=== PATIENT | male | born 1985 | race Caucasian/White ===

== ENCOUNTER 2017-01-28 12:27 | Emergency (ER) | payer OTHER ==
--- NOTE | 2017-01-28 13:11 | ED Physician Documentation ---
PD HPI UPPER EXT INJURY - Stated complaint Stated Complaint: L RING FINGER INJURY - Chief complaint Chief Complaint: Ext Problem - History obtained from History obtained from: Patient, Family - History of Present Illness Location: Left, Finger (ring) Type of injury: Other (pulled on dog collar) Where injury occurred: Home Timing - onset: Last night Timing - duration: Days (1) Timing - details: Abrupt onset Pain level max: 7 Pain level now: 6 Improved by: Rest, Ice, Immobilization Worsened by: Moving, Palpating Associated symptoms: Swelling, Discolored (ecchymosis). No: Weakness, Numbness , Tingling Contributing factors: No: Anticoagulated Similar symptoms before: Has not had sx before - Additonal information Additional information: pt is right handed Review of Systems Constitutional: denies: Fever, Chills Respiratory: denies: Cough GI: denies: Abdominal Pain, Nausea, Vomiting, Diarrhea Skin: denies: Rash, Laceration (s) Musculoskeletal: denies: Neck pain, Back pain Neurologic: denies: Headache PD PAST MEDICAL HISTORY - Past Medical History Past Medical History: No - Allergies Allergies/Adverse Reactions: Allergies Allergy/AdvReac Type Severity Reaction Status Date / Time No Known Drug Allergies Allergy Verified 01/28/17 12:43 PD ED PE NORMAL - Vitals Vital signs reviewed: Yes - General General: Alert and oriented X 3, No acute distress - Derm Derm: Warm and dry - Neuro Neuro: Alert and oriented X 3 - Psych Psych: Normal mood, Normal affect PD ED PE EXPANDED - Extremities IVONNE UE/Hands Visual: 1 - swelling, tenderness (no deformity. Limited ROM 2/2 pain. NVI) Results - Vitals Vitals: Vital Signs - 24 hr 01/28/17 01/28/17 12:40 13:48 Temperature 36.2 C L 36.5 C Heart Rate 56 L 58 L Respiratory 14 16 Rate Blood Pressure 118/68 120/64 O2 Saturation 99 100 Oxygen O2 Source Room air - Rads (name of study) L 4th digit xray Radiology: Prelim report reviewed, EMP read contemporaneously, See rad report ( Large avulsion fracture base of the fourth distal phalanx) PD MEDICAL DECISION MAKING - ED course Complexity details: reviewed results, re-evaluated patient, considered differential, d/w patient, d/w family ED course: Patient is a 31-year-old male who appears to have a large avulsion fracture at the base of the distal phalanx of the fourth digit. Placed in a mallet finger splint. Unable to test tendon and ligament involvement as he is swollen and in pain. Recommend that he follow-up closely with his doctor for further evaluation and inform the patient that he may need referral to a hand specialist or orthopedist. Patient counseled regarding signs and symptoms for which I believe and urgent re-evaluation would be necessary. Patient with good understanding of and agreement to plan and is comfortable going home at this time This document was made in part using voice recognition software. While efforts are made to proofread this document, sound alike and grammatical errors may occur. Departure - Departure Disposition: 01 Home, Self Care Clinical Impression: Finger fracture, left, Mallet finger of left finger(s) Condition: Good Instructions: ED Fx Finger Closed Follow-Up: your,doctor in 1 week [Other] Comments: Return if you worsen. Wear the splint until seen by your doctor next week. You need repeat evaluation to evaluate for ligament/tendon injury. Discharge Date/Time: 01/28/17 13:58
--- NOTE | 2017-01-28 13:41 | XRAY Preliminary Report ---
Exam: XR Finger(s) LT IMPRESSION: Large avulsion fracture base fourth distal phalanx. [facility] SITE ID: [id number]
[2017-01-28 13:48] VITALS: BP 120/64
--- NOTE | 2017-01-28 14:20 | XRAY Report ---
EXAM: LEFT FOURTH DIGIT RADIOGRAPHY EXAM DATE: 01/28/2017 01:26 PM. CLINICAL HISTORY: Fourth digit swelling, ecchymosis. COMPARISON: None. TECHNIQUE: 3 views. FINDINGS: Bones: Large acute comminuted avulsion fracture involving the posterior two-thirds space fourth dista l phalanx with 1 mm offset of the major fracture fragments. Joints: Normal. No subluxations. Soft Tissues: Marked edema adjacent to the fracture. IMPRESSION: Large avulsion fracture base fourth distal phalanx. [facility] Referring Provider Line: [phone] SITE ID: [id number]
== END 2017-01-28 13:58 | disposition home or self-care (01) ==
LOC: ED 12:27
DX: S62.635A Displaced fracture of distal phalanx of left ring finger, initial encounter for closed fracture (principal); M20.011 Mallet finger of right finger(s); W23.0XXA Caught, crushed, jammed, or pinched between moving objects, initial encounter; X50.1XXA Overexertion from prolonged static or awkward postures, initial encounter; Y92.009 Unspecified place in unspecified non-institutional (private) residence as the place of occurrence of the external cause
CPT/HCPCS: 73140; 99283

== ENCOUNTER 2018-05-03 07:14 | Outpatient (CLI) | payer OTHER ==
[2018-05-03] MEDS ORDERED: GADOBUTROL 10 MMOL/10 ML VIAL ONE (07:32)
[2018-05-03] MEDS ORDERED: GADOBUTROL 10 MMOL/10 ML VIAL IVP ONE (08:29)
--- NOTE | 2018-05-03 14:25 | MRI Report ---
Reason: MIGRAINE,UNSPECIFIED,NOT INTACTABLE, WITHOUT STAT Procedure Date: 05/03/2018 Accession Number: [id number] / [id number] Procedure: MRI - Brain W/WO CPT Code: FULL RESULT: EXAM: MRI BRAIN WITHOUT AND WITH CONTRAST EXAM DATE: 05/03/2018 08:27 AM. CLINICAL HISTORY: Reported history of migraines with increasing frequency over the last 6 years. COMPARISON: BRAIN/IAC'S 08/06/2008 11:31 AM. TECHNIQUE: Multiplanar, multisequence T1-weighted and fluid-sensitive MR sequences of the brain were performed. Sequences optimized for routine evaluation. Other: None. IV Contrast: 10 mL Gadavist. FINDINGS: Brain Volume: Normal for age. Parenchyma: No acute hemorrhage, mass, or infarct. No white matter lesions identified. No abnormal enhancement. Ventricles/Cisterns: No hydrocephalus. No abnormal extra-axial fluid collection or hemorrhage. Orbits: Symmetric and unremarkable. Sella Turcica: The pituitary gland, cavernous sinuses, suprasellar cistern and optic chiasm are unremarkable. IAC: Symmetric and unremarkable. Vasculature: Normal signal flow void is seen in the major arterial structures at the skull base. The dural sinuses are patent and enhance normally. Sinuses: Minimal nonspecific inferior maxillary mucosal thickening. Bones: No focal pathologic appearing marrow signal changes. Other: None. IMPRESSION: 1. No acute intracranial abnormality or enhancing mass. Stable appearance of the brain. 2. Minimal nonspecific maxillary sinus mucosal thickening. [facility]
== END 2018-05-03 07:15 | disposition home or self-care (01) ==
LOC: DI 07:14
PROVIDERS: ATTEND General Practice
DX: G43.909 Migraine, unspecified, not intractable, without status migrainosus (principal)
CPT/HCPCS: 70553; A9585

== ENCOUNTER 2018-08-11 12:15 | Outpatient (CLI) | payer OTHER ==
--- NOTE | 2018-08-11 15:39 | MRI Report ---
Reason: PAIN IN RIGHT KNEE Procedure Date: 08/11/2018 Accession Number: [id number] / [id number] Procedure: MRI - Knee RT W/O CPT Code: FULL RESULT: EXAM: RIGHT KNEE MRI WITHOUT CONTRAST EXAM DATE: 08/11/2018 12:19 PM. CLINICAL HISTORY: PAIN IN RIGHT KNEE. COMPARISON: None. TECHNIQUE: Multiplanar, multisequence T1-weighted and fluid-sensitive sequences of the knee without contrast. Other: None. FINDINGS: Bones: Benign bone island seen at the lateral proximal tibial plateau. No fractures. No worrisome imaging features elsewhere. Articular Cartilage: Unremarkable. Medial Meniscus: Medial meniscus shows a full-thickness tear through the posterior horn near the medial meniscal root. There also appears to be a focal loose body or focal area of calcification seen within this torn edge. Series 701 image 24, series 601 image 9. Lateral Meniscus: The lateral meniscus is intact. Cruciate Ligaments: The anterior and posterior cruciate ligaments are intact. Collateral Ligaments: The medial collateral and lateral collateral ligamentous structures are intact. Tendons: Quadriceps, semimembranosus and popliteus tendons are normal. There is a small amount of calcification/ossification seen in the proximal portion of the distal patellar tendon. Probably longstanding. Musculature: Moderate fatty atrophy. Other: No effusion. No popliteal cyst. No loose bodies. The medial and lateral retinacula are intact. The subcutaneous tissues and fat pads are unremarkable. IMPRESSION: 1. Medial meniscus shows a full-thickness tear through the posterior horn near the medial meniscal root. There is a focal loose body versus focal area of calcification within the free edge of the torn meniscus. No displaced fragment. 2. Lateral meniscus, cruciates, and collaterals appear normal. 3. No other worrisome imaging features. [facility] MUSCULOSKELETAL RADIOLOGY SECTION
== END 2018-08-11 12:16 | disposition home or self-care (01) ==
LOC: DI 12:15
PROVIDERS: ATTEND General Practice
DX: S83.241A Other tear of medial meniscus, current injury, right knee, initial encounter (principal)

== ENCOUNTER 2018-10-24 16:05 | Emergency (ER) | payer OTHER ==
[2018-10-24 16:10] VITALS: BP 144/78
[2018-10-24] MEDS ORDERED: HYDROmorphone 1 MG/ML CARPUJECT IM STA (16:17)
[2018-10-24] MEDS ORDERED: KETOROLAC 60 MG/2 ML VIAL IM STA (16:17)
--- NOTE | 2018-10-24 16:19 | ED Physician Documentation ---
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 It flared up yesterday after lifting his child. It is just to the left of the midline of the lumbar spine. There is no radiation. No weakness, numbness, tingling, saddle anesthesia or fevers.) Review of Systems Constitutional: reports: Reviewed and negative Cardiac: reports: Reviewed and negative Respiratory: reports: Reviewed and negative PD PAST MEDICAL HISTORY - Present Medications Home Medications: Ambulatory Orders Medication Instructions Recorded Confirmed Cyclobenzaprine [Flexeril] 10 mg PO TID PRN #20 tablet 10/24/18 Hydrocodone/Acetaminophen 1 - 2 each PO Q6H PRN #14 tablet 10/24/18 [Hydrocodon-Acetaminophen 5-325] Ibuprofen [Motrin] 800 mg PO Q8H PRN #30 tablet 10/24/18 - Allergies Allergies/Adverse Reactions: Allergies Allergy/AdvReac Type Severity Reaction Status Date / Time No Known Drug Allergies Allergy Verified 10/24/18 16:10 PD ED PE NORMAL - Vitals Vital signs reviewed: Yes - General General: Alert and oriented X 3, Other (No distress at rest but really is hurting him a lot to move and he moves very slowly.) - Abdomen Abdomen: Normal bowel sounds, Soft, Non tender - Back Back: Other (No midline spinal tenderness, he does have tenderness to the left paralumbar muscles. The patient has equal and normal Achilles and patellar reflexes bilaterally. Normal sensation in all areas of the legs. Patient denies saddle anesthesia. Normal strength in flexion-extension at the ankles, knees, and flexion of the hips.) - Neuro Neuro: Alert and oriented X 3, Normal speech Results - Vitals Vitals: Vital Signs - 24 hr 10/24/18 16:09 Temperature 36.3 C L Heart Rate 73 Respiratory 17 Rate Blood Pressure 144/78 H O2 Saturation 100 Oxygen O2 Source Room air PD MEDICAL DECISION MAKING - ED course ED course: This patient has seemingly uncomplicated musculoskeletal back pain. The patient has no "red flags." Specifically denies IV drug use, fevers, incontinence, saddle anesthesia. Spinal epidural abscess was considered, given that the patient has no fever, is not diabetic, has no spinal tenderness, does not use IV drugs, and has no bilateral neurologic symptoms, the diagnosis of spinal epidural abscess is considered exceedingly unlikely. Departure - Departure Disposition: 01 Home, Self Care Clinical Impression: Back pain Qualifiers: Back pain location: low back pain Chronicity: acute Back pain laterality: left Sciatica presence: without sciatica Qualified Code(s): M54.5 - Low back pain Condition: Good Record reviewed to determine appropriate education?: Yes Instructions: ED Low Back Pain Injury Prescriptions: Cyclobenzaprine [Flexeril] 10 mg PO TID PRN #20 tablet PRN Reason: Spasms Hydrocodone/Acetaminophen [Hydrocodon-Acetaminophen 5-325] 1 - 2 each PO Q6H PRN #14 tablet PRN Reason: pain Ibuprofen [Motrin] 800 mg PO Q8H PRN #30 tablet PRN Reason: PAIN &/OR FEVER Comments: Call your doctor to arrange a follow-up appointment, make the next available appointment. In the interim, return anytime if worse or if new symptoms develop. Your blood pressure was elevated today on check into the emergency department. This does not mean that you have hypertension, it is a common phenomenon to come to the emergency department and have elevated blood pressure. I recommend that you see your primary care physician within the week to have it rechecked when you are feeling better. Do not drink or drive while taking narcotic pain medication. Note that many narcotic pain relievers also contain Tylenol/acetaminophen. Please ensure that your total dose of acetaminophen from all sources does not exceed 3 g (3000 mg) per day. You may get constipated while on this medication. Take a stool softener such as Colace twice a day while you are on it. Also add an [id number] laxative such as senna or MiraLAX on any day that you do not have a bowel movement. If you received a narcotic pain medication or sedative while in the emergency department, do not drive for the next 24 hours.
== END 2018-10-24 16:32 | disposition home or self-care (01) ==
LOC: ED 16:05
DX: M54.5 Low back pain (principal)
CPT/HCPCS: 96372; 99283; J1170